=== PATIENT | female | born 1985 | race Caucasian/White ===

== ENCOUNTER 2019-03-08 18:57 | Emergency (ER) | payer OTHER ==
[~2019-03-08] VITALS: Ht 162.6 cm; Wt 124.7 kg
[2019-03-08] MEDS ORDERED: YAZ 28 TABLET1 EACH PO (19:20)
[2019-03-08] MEDS ORDERED: DOXYCYCLINE 10100 MG PO (20:04)
[2019-03-08 20:21] VITALS: BP 149/79
== END 2019-03-08 20:22 | disposition home or self-care (01) ==
LOC: M.ERS 18:57
DX: L72.3 Sebaceous cyst (principal); L02.413 Cutaneous abscess of right upper limb